=== PATIENT | male | born 1965 | race Caucasian/White ===

== ENCOUNTER 2020-06-05 14:30 | Emergency (ER) | payer BC ==
[~2020-06-05] VITALS: Ht 172.7 cm; Wt 86.2 kg
--- NOTE | 2020-06-05 14:35 | NUR ---
DR. SANCHEZ AT BEDSIDE IN ROOM 2A.
--- NOTE | 2020-06-05 14:39 | NUR ---
CODE STROKE ACTIVATED BY .
--- NOTE | 2020-06-05 14:42 | NUR ---
TELEMED REQUEST COMPLETED, [facility] ID: [id number].
--- NOTE | 2020-06-05 14:47 | NUR ---
PT TO CT WITH S[employer] EFFECTS SPECIALIST AND ARMIDA SANTAMARIA WITH ACLS GUIDELINES IN PLACE.
[2020-06-05] MEDS ORDERED: IV NORMAL SALINE 250 ML IV ONE (14:50)
[2020-06-05] MEDS ORDERED: IOHEXOL 350 100 ML INFUS..BTL ONE (14:50)
[2020-06-05] MEDS ORDERED: SWABABLE VALVE TRANSFER SET EA MC ONE (14:50)
[2020-06-05 15:05] LABS: CREATININE 0.9 mg/dL (0.6-1.3); POTASSIUM 4.2 mmol/L (3.5-5.1)
[2020-06-05 15:06] LABS: BASOPHILS # (AUTO) 0.1 K/uL (0.0-8.0); BASOPHILS % (AUTO) 0.5 % (0.0-2.0); EOSINOPHILS # (AUTO) 0.1 K/uL (0.0-0.7); HEMATOCRIT 43.2 % (36.7-47.1); HEMOGLOBIN 14.7 g/dL (12.5-16.3); LYMPHOCYTES % (AUTO) 16.4 % (20.5-51.5); MEAN CORPUSCULAR HEMOGLOBIN 31.2 uug (23.8-33.4); MEAN CORPUSCULAR HGB CONC 34 g/dL (32.5-36.3); MEAN CORPUSCULAR VOLUME 91.8 fL (73.0-96.2); MONOCYTES # (AUTO) 0.9 K/uL (2.0-10.0); MONOCYTES % (AUTO) 7.7 % (0.0-11.0); NEUTROPHILS # (AUTO) 8.9 K/uL (1.8-8.9); NEUTROPHILS % (AUTO) 74.4 % (38.5-71.5); PLATELET COUNT (AUTO) 304 K/uL (152-348)
[2020-06-05 15:11] LABS: BILIRUBIN,DIRECT 0.1 mg/dL (0.0-0.2); BILIRUBIN,TOTAL 0.4 mg/dL (0.2-1.0); TOTAL PROTEIN, SERUM 7.6 g/dL (6.4-8.2)
[2020-06-05] MEDS ORDERED: PROCHLORPERAZINE EDISYLATE 10 MG/2 ML VIAL IV ONE (15:15)
[2020-06-05] MEDS ORDERED: MECLIZINE HCL 25 MG TABLET ONE (15:27)
[2020-06-05] MEDS ORDERED: MECLIZINE HCL 25 MG TABLET PO ONE (15:30)
--- NOTE | 2020-06-05 15:55 | NUR ---
PT IS BEING EVAL BY NEUROLOGIST VIA [facility].
[2020-06-05] MEDS ORDERED: ONDANSETRON ODT 4 MG TAB.RAPDIS ONE (17:14)
[2020-06-05] MEDS ORDERED: ONDANSETRON ODT 4 MG TAB.RAPDIS SL ONE (17:15)
--- NOTE | 2020-06-05 18:25 | NUR ---
PT WAS D/C'd TO HOME AFTER DR SANCHEZ RE-EVALUATION. D/C INSTRUCTIONS GIVEN TO THE PT BY DR SANCHEZ. PT LEFT [facility]OSPITAL ER WITH HIS BY CAR .
[2020-06-05 18:29] VITALS: BP 133/77
== END 2020-06-05 18:30 | disposition home or self-care (01) ==
LOC: ER 14:30
DX: R42 Dizziness and giddiness (principal); R00.0 Tachycardia, unspecified; R11.2 Nausea with vomiting, unspecified; M81.0 Age-related osteoporosis without current pathological fracture
CPT/HCPCS: 36415; 70450; 70496; 70498; 71045; 80048; 80061; 80076; 82962; 84484; 85025; 85730; 93005; 99285; Q9967; 70030-TC; A4663; J3490; J7050; J8597; Q0162

== ENCOUNTER 2024-10-30 18:11 | Emergency (ER) | payer BC ==
[~2024-10-30] VITALS: Ht 172.7 cm; Wt 80.3 kg
[2024-10-30] MEDS ORDERED: TEST75GE10 TP (18:39)
[2024-10-30] MEDS ORDERED: OMEP20CA15 PO (18:39)
[2024-10-30] MEDS ORDERED: GABA300T25 PO (18:39)
[2024-10-30] MEDS ORDERED: ATOR10TA PO (18:39)
[2024-10-30] MEDS ORDERED: GUAN1TAB29 (18:39)
[2024-10-30] MEDS ORDERED: BUPR-319 PO (18:39)
[2024-10-30] MEDS ORDERED: GABA-532 PO (18:39)
[2024-10-30] MEDS ORDERED: HYDROMORPHONE 1 MG/1 ML DISP.SYRIN ONE (19:05)
[2024-10-30] MEDS ORDERED: ONDANSETRON 4 MG/2 ML VIAL ONE (19:05)
[2024-10-30 19:11] LABS: BASOPHILS # (AUTO) 0.1 K/UL (0.0-0.2); BASOPHILS % (AUTO) 0.5 % (0.0-2.0); DIFFERENTIAL COMMENT 1; EOSINOPHILS # (AUTO) 0.1 K/uL (0.0-0.7); EOSINOPHILS % (AUTO) 0.3 % (0.0-7.0); HEMATOCRIT 46.8 % (36.7-47.1); HEMOGLOBIN 15.9 g/dL (12.5-16.3); LYMPHOCYTES # (AUTO) 1.6 K/uL (0.8-4.8); LYMPHOCYTES % (AUTO) 10.5 % (20.5-51.5); MEAN CORPUSCULAR HEMOGLOBIN 30.4 uug (23.8-33.4); MEAN CORPUSCULAR HGB CONC 34 g/dL (32.5-36.3); MEAN CORPUSCULAR VOLUME 89.6 fL (73.0-96.2); MONOCYTES # (AUTO) 0.9 K/uL (0.1-1.30); MONOCYTES % (AUTO) 6.2 % (0.0-11.0); NEUTROPHILS # (AUTO) 12.2 K/uL (1.8-8.9); NEUTROPHILS % (AUTO) 82.5 % (38.5-71.5); PLATELET COUNT (AUTO) 335 K/uL (152-348); RED BLOOD CELL COUNT(AUTO) 5.23 MIL/uL (4.06-5.63); RED CELL DISTRIBUTION WIDTH 13.1 % (12.1-16.2); WHITE BLOOD COUNT (AUTO) 14.7 K/uL (3.6-10.2)
[2024-10-30 19:17] LABS: CALCIUM 10.4 mg/dL (8.5-10.1); CARBON DIOXIDE 25 mmol/L (21-32); CHLORIDE 102 mmol/L (98-107); CREATININE 1.3 mg/dL (0.6-1.3); GLUCOSE 101 mg/dL (74-106); POTASSIUM 4.4 mmol/L (3.5-5.1); SODIUM SERUM 142 mmol/L (136-145); UREA NITROGEN, BLOOD 16 mg/dL (7-18)
[2024-10-30] MEDS: HYDROMORPHONE 1 MG/1 ML DISP.SYRIN IV ONE (19:24)
[2024-10-30] MEDS: IV NORMAL SALINE 1000 ML BAG IV ONE (19:24)
[2024-10-30] MEDS: ONDANSETRON 4 MG/2 ML VIAL IV ONE (19:24)
[2024-10-30 19:26] LABS: ALANINE AMINOTRANSFERASE 27 U/L (16-63); ALBUMIN 4.6 g/dL (3.4-5.0); ALKALINE PHOSPHATASE 99 U/L (50-136); ASPARTATE AMINOTRANSFERASE 30 U/L (15-37); BILIRUBIN,DIRECT 0.2 mg/dL (0.0-0.2); LIPASE 17 U/L (16-77); TOTAL PROTEIN, SERUM 8.5 g/dL (6.4-8.2)
[2024-10-30 20:18] LABS: *BILIRUBIN,URIN NEGATIVE (NEGATIVE); *BLOOD, URINE 3+ (NEGATIVE); *CLARITY,URINE CLEAR (CLEAR); *COLOR,URINE YELLOW (YELLOW); *KETONES,URINE 1+ (NEGATIVE); *PROTEIN,URINE 1+ (NEGATIVE); *UROBILINOGEN,URINE 0.2 E.U./dl (NORMAL); LEUKOCYTE ESTERASE ,URINE NEGATIVE (NEGATIVE); NITRITE, URINE NEGATIVE (NEGATIVE); UGLUCOSE NEGATIVE (NEGATIVE)
[2024-10-30 20:32] LABS: BACTERIA,URINE FEW /HPF (NONE SEEN); RBC,URINE 20-50 /HPF (0-3); SQUAMOUS EPITHELIAL CELL,UR FEW /HPF (NONE SEEN); WBC,URINE 0-3 /HPF (0-3)
[2024-10-30] MEDS ORDERED: HYDR-3980 PO (22:34)
[2024-10-30] MEDS ORDERED: IBUP-1957 PO (22:34)
[2024-10-30 22:44] VITALS: BP 139/92; O2SAT 0
== END 2024-10-30 22:46 | disposition home or self-care (01) ==
LOC: ER 18:14
DX: N13.2 Hydronephrosis with renal and ureteral calculous obstruction (principal); R07.9 Chest pain, unspecified; R06.00 Dyspnea, unspecified; Z79.899 Other long term (current) drug therapy; Z86.69 Personal history of other diseases of the nervous system and sense organs; Z86.59 Personal history of other mental and behavioral disorders; Z87.39 Personal history of other diseases of the musculoskeletal system and connective tissue
CPT/HCPCS: 99285; 74176; 96374; 71045; 96361; 96375; 80076; 80048; 81001; 83690; 85025; 85730; 87086; 84484 ×2; 36415; 93005; J2405; J1171; J7040; A4606; A4663